=== PATIENT | male | born 1960 | race Caucasian/White ===

== ENCOUNTER → 2017-08-06 | Outpatient (CLI) | payer MEDICARE ==
[~2017-08-06] MED LIST: ASPI-496 PO; OMEP-110 PO; OXYC1TAB9 PO
== END | disposition home or self-care (01) ==
LOC: CARD 13:34
PROVIDERS: ATTEND Internal Medicine Cardiovascular Disease
DX: J44.9 Chronic obstructive pulmonary disease, unspecified (principal)
CPT/HCPCS: 94060; 94729

== ENCOUNTER → 2017-08-08 | Outpatient (CLI) | payer MEDICARE ==
[~2017-08-08] MED LIST changes: -ASPI-496 PO; -OMEP-110 PO; +OMNIPAQUE 350 MG/ML, 75ML BOTTLE ONE; -OXYC1TAB9 PO; +REGADENOSON 0.4 MG/5 ML SYRINGE ONE
== END | disposition home or self-care (01) ==
LOC: CFH 09:19
PROVIDERS: ATTEND Internal Medicine Cardiovascular Disease
DX: I25.9 Chronic ischemic heart disease, unspecified (principal); I51.7 Cardiomegaly; I34.8 Other nonrheumatic mitral valve disorders; I49.3 Ventricular premature depolarization; J43.2 Centrilobular emphysema; R91.8 Other nonspecific abnormal finding of lung field; Z87.891 Personal history of nicotine dependence
CPT/HCPCS: 71260; 78452; 93017; 93306; A9502; Q9967; J2785

== ENCOUNTER 2017-08-17 08:31 | Day surgery (SDC) | payer MEDICARE ==
[2017-08-16 10:14] LABS: HEMATOCRIT 48.9 % (39.2-51.8); HEMOGLOBIN 16.9 g/dL (13.7-18.0); WHITE BLOOD COUNT 8.1 x10^3/uL (3.4-10)
[2017-08-16 10:27] LABS: BLOOD UREA NITROGEN 13 mg/dL (7-18)
[~2017-08-17] VITALS: Ht 188 cm; Wt 102.3 kg
[~2017-08-17 08:31] MED LIST changes: +ASPI-496 PO; +OMEP-110 PO; -OMNIPAQUE 350 MG/ML, 75ML BOTTLE ONE; +OXYC1TAB9 PO; -REGADENOSON 0.4 MG/5 ML SYRINGE ONE
[2017-08-17] MEDS ORDERED: SODIUM CHLORIDE 0.9% 1,000 ML IV SCH (08:35)
[2017-08-17 08:53] VITALS: BP 136/75
[2017-08-17] MEDS ORDERED: LIDOCAINE 2%, 20ML ONE (10:43)
[2017-08-17] MEDS ORDERED: HEPARIN 1,000 UNITS/ML, 10ML ONE (10:43)
[2017-08-17] MEDS ORDERED: FENTANYL PF 100 MCG/2ML ONE (10:43)
[2017-08-17] MEDS ORDERED: VERAPAMIL 2.5 MG/ML, 2ML ONE (10:43)
[2017-08-17] MEDS ORDERED: MIDAZOLAM 1 MG/ML, 5ML ONE (10:43)
[2017-08-17] MEDS ORDERED: ONDANSETRON 2MG/ML, 2ML ONE (11:05)
[2017-08-17] MEDS ORDERED: PROPOFOL 10 MG/ML, 20ML ONE (11:05)
[2017-08-17] MEDS ORDERED: ROCURONIUM 10 MG/ML ONE (11:05)
[2017-08-17] MEDS ORDERED: DEXAMETHASONE 4 MG/ML, 1ML ONE (11:05)
[2017-08-17] MEDS ORDERED: PROMETHAZINE 25 MG/ML, 1ML IV PRN (12:00)
[2017-08-17] MEDS ORDERED: MIDAZOLAM 1 MG/ML, 2ML IV PRN (12:00)
[2017-08-17] MEDS ORDERED: FENTANYL PF 100 MCG/2ML IV PRN (12:00)
[2017-08-17] MEDS ORDERED: OXYcodone 5 MG/5 ML ORAL.SOL UDC PO PRN (12:00)
[2017-08-17] MEDS ORDERED: LABETALOL 5MG/ML, 20ML IV PRN (12:00)
[2017-08-17] MEDS ORDERED: MEPERIDINE/PF 25MG/0.5ML IVPush PRN (12:00)
[2017-08-17] MEDS ORDERED: ONDANSETRON 2MG/ML, 2ML IVPush PRN (12:00)
[2017-08-17] MEDS ORDERED: ALBUTEROL SULFATE 2.5 MG/3 ML NPPB PRN (12:00)
[2017-08-17] MEDS ORDERED: hydrALAzine 20 MG/ML, 1ML IV PRN (12:00)
[2017-08-17] MEDS ORDERED: HYDROmorphone 1 MG/ML, 1ML IV PRN (12:00)
[2017-08-17] MEDS ORDERED: ACETAMINOPHEN 325 MG TABLET PO PRN (12:00)
[2017-08-17] MEDS ORDERED: OXYcodone/APAP 10/325MG TABLET PO SCH (16:00)
[2017-08-18] MEDS ORDERED: OMEPRAZOLE 20 MG CAPSULE.DR PO SCH (09:00)
[2017-08-18] MEDS ORDERED: ASPIRIN 81 MG TABLET EC PO SCH (09:00)
== END 2017-08-17 14:11 | disposition home or self-care (01) ==
LOC: CACL 08:31
PROVIDERS: ATTEND Internal Medicine Cardiovascular Disease
DX: I25.10 Atherosclerotic heart disease of native coronary artery without angina pectoris (principal); F17.210 Nicotine dependence, cigarettes, uncomplicated; J44.9 Chronic obstructive pulmonary disease, unspecified; F41.9 Anxiety disorder, unspecified; Z79.82 Long term (current) use of aspirin
CPT/HCPCS: 36415; 80048; 85025; 93458; C1894; J1100; J1644; J2250; J2405; J2704; J3010; J3490; Q9967

== ENCOUNTER 2018-12-02 17:55 | Emergency (ER) | payer MEDICARE ==
[~2018-12-02] VITALS: Ht 190.5 cm; Wt 101.4 kg
[~2018-12-02 17:55] MED LIST changes: +OXYC-432 PO; -OXYC1TAB9 PO
[2018-12-02 18:00] VITALS: BP 113/82
== END 2018-12-02 19:43 | disposition home or self-care (01) ==
LOC: ED 19:29
DX: S20.01XA Contusion of right breast, initial encounter (principal); L92.9 Granulomatous disorder of the skin and subcutaneous tissue, unspecified; F17.200 Nicotine dependence, unspecified, uncomplicated; W01.0XXA Fall on same level from slipping, tripping and stumbling without subsequent striking against object, initial encounter; Y93.89 Activity, other specified; Y92.410 Unspecified street and highway as the place of occurrence of the external cause; Y99.8 Other external cause status
CPT/HCPCS: 99283

== ENCOUNTER 2020-11-22 09:03 | Outpatient (CLI) | payer MEDICARE ==
[~2020-11-22 09:03] MED LIST changes: -OXYC-432 PO; +OXYC1TAB18 PO
[2020-11-22] MEDS ORDERED: NALOXONE 1 MG/ML, 2ML ONE (09:53)
[2020-11-22] MEDS ORDERED: FLUMAZENIL 0.1 MG/1 ML, 5ML ONE (09:53)
[2020-11-22] MEDS ORDERED: MIDAZOLAM 1 MG/ML, 5ML ONE (09:53)
[2020-11-22] MEDS ORDERED: FENTANYL PF 100 MCG/2ML ONE (09:53)
[2020-11-22] MEDS ORDERED: GADOTERATE 10 MMOL/20 ML VIAL ONE (10:24)
== END 2020-11-22 23:59 | disposition home or self-care (01) ==
LOC: RAD 09:03
PROVIDERS: ATTEND Registered Nurse
DX: G43.909 Migraine, unspecified, not intractable, without status migrainosus (principal); J44.9 Chronic obstructive pulmonary disease, unspecified; Z79.899 Other long term (current) drug therapy; Z87.891 Personal history of nicotine dependence
CPT/HCPCS: 70553; 99156; 99157; A9575; J2250; J3010; J2310